=== PATIENT | female | born 1950 | race Caucasian/White ===

== ENCOUNTER 2025-05-11 15:37 | Inpatient (IN) ==
--- NOTE | 2025-05-11 16:02 | DR.GENAD ---
HPI Time Seen Time Seen by Provider: 05/11/25 15:52 Complaint/Symptoms Chief Complaint Doctors Comments: 75 yo F, hx of dementia (non-verbal), BIBA from home for infection to RUQ of abd wall. Pt has g-tube in place. states that she has formed multiple ulcerations around stoma, and then the redness spread from these ulcerations along RUQ abd wall the past wk with increasing severity. Denies fever. Denies other complaints. PMH PMH Past Medical History: Alzheimers, Anxiety, Diabetes, GERD and Hypothyroidism Past Surgical History: Yes Surgical History: Cholecystectomy Social History Do you use any recreational Drugs:: No ROS Review of Systems Unable to Obtain Due To: Dementia PE Vital Signs Vitals: Vital Signs Temperature 98.0 F Pulse Rate 78 Pulse Rate 76 Pulse Rate 78 Pulse Rate 76 Pulse Rate 77 Pulse Rate 80 Pulse Rate 79 Pulse Rate 78 Pulse Rate 81 Pulse Rate 83 Pulse Rate 91 Pulse Rate 81 Pulse Rate 85 Pulse Rate 78 Pulse Rate 77 Pulse Rate 83 Pulse Rate 77 Pulse Rate 86 Pulse Rate 80 Pulse Rate 85 Respiratory Rate 27 Respiratory Rate 23 Respiratory Rate 18 Respiratory Rate 26 Respiratory Rate 24 Respiratory Rate 31 Respiratory Rate 28 Respiratory Rate 24 Respiratory Rate 30 Respiratory Rate 25 Respiratory Rate 49 Respiratory Rate 32 Respiratory Rate 35 Respiratory Rate 19 Respiratory Rate 22 Respiratory Rate 20 Respiratory Rate 20 Respiratory Rate 35 Blood Pressure 132/60 Blood Pressure 130/58 Blood Pressure 159/122 Blood Pressure 186/78 Blood Pressure 165/68 Blood Pressure 184/78 Blood Pressure 184/78 Blood Pressure 142/86 O2 Sat by Pulse Oximetry 96 O2 Sat by Pulse Oximetry 97 O2 Sat by Pulse Oximetry 96 O2 Sat by Pulse Oximetry 93 O2 Sat by Pulse Oximetry 96 O2 Sat by Pulse Oximetry 98 O2 Sat by Pulse Oximetry 99 O2 Sat by Pulse Oximetry 98 O2 Sat by Pulse Oximetry 99 O2 Sat by Pulse Oximetry 100 O2 Sat by Pulse Oximetry 99 O2 Sat by Pulse Oximetry 98 O2 Sat by Pulse Oximetry 98 O2 Sat by Pulse Oximetry 98 O2 Sat by Pulse Oximetry 98 O2 Sat by Pulse Oximetry 98 General Limitations: No Limitations General Appearance: Alert and In No Apparent Distress Head Head Exam: Normal Inspection Eyes Eye exam: Normal Appearance ENT ENT Exam: Normal Exam External Ear Exam: Normal External Inspection TM/Canal Exam: Bilateral: Normal Nose Exam: Normal Nose Exam Mouth Exam: Normal Inspection Throat Exam: Normal Inspection Neck Neck Exam: Normal Inspection Chest Chest Inspection: Normal Inspection Respiratory Respiratory Exam: Normal Lung Sounds Bilat Respiratory Exam: Bilateral: Clear to Auscultation Cardiovascular Cardiovascular Exam: Regular Rate and Normal Rhythm Abdominal Exam Abdominal Exam: Other (G-tube in place, mult ulcerations surrounding stoma, erythematous patch along RUQ/R lower chest wall, warm to the touch, consistent with abd wall cellulitis.) Extremities Extremities Exam: Normal Inspection Back Back Exam: Normal Inspection Neurologic Neurological Exam: Alert Skin Skin Exam: Warm, Dry, Intact, Normal Color and Rash (see abdominal exam) ROR Labs Reviewed Laboratory Results Reviewed?: Yes 05/11/25 16:00 05/11/25 16:00 Laboratory: WBC 8.2 X10^3/uL (3.6-10.0) 05/11/25 16:00 RBC 4.81 X10^6/uL (3.5-5.4) 05/11/25 16:00 Hgb 13.9 g/dL (12.0-16.0) 05/11/25 16:00 Hct 42.1 % (36.0-47.0) 05/11/25 16:00 MCV 87.6 fL (80.0-100.0) 05/11/25 16:00 MCH 28.9 pg (27.0-34.0) 05/11/25 16:00 MCHC 33.0 g/dL (33.0-35.0) 05/11/25 16:00 RDW 14.3 % (11.6-16.5) 05/11/25 16:00 Plt Count 260 X10^3/uL (150.0-450.0) 05/11/25 16:00 MPV 10.0 fL (7.4-11.0) 05/11/25 16:00 Neut % (Auto) 55.6 % (42.0-75.0) 05/11/25 16:00 Lymph % (Auto) 25.4 % (21.0-51.0) 05/11/25 16:00 [place] % (Auto) 13.3 % (0.0-13.0) H 05/11/25 16:00 Eos % (Auto) 3.9 % (0.9-2.9) H 05/11/25 16:00 Baso % (Auto) 1.8 % (0.2-1.0) H 05/11/25 16:00 Neut # (Auto) 4.5 x10^3/uL (2.2-4.8) 05/11/25 16:00 Lymph # (Auto) 2.1 X10^3/uL (1.3-2.9) 05/11/25 16:00 [place] # (Auto) 1.1 x10^3/uL (0.3-0.8) H 05/11/25 16:00 Eos # (Auto) 0.3 x10^3/uL (0.0-0.2) H 05/11/25 16:00 Baso # (Auto) 0.1 X10^3/uL (0.0-0.1) 05/11/25 16:00 Absolute Nucleated RBC 0.1 /100WBC 05/11/25 16:00 Sodium 142 mmol/L (136-145) 05/11/25 16:00 Corrected Sodium TNP 05/11/25 16:00 Potassium 4.0 mmol/L (3.5-5.1) 05/11/25 16:00 Chloride 104 mmol/L (98-107) 05/11/25 16:00 Carbon Dioxide 31.7 mmol/L (21-32) 05/11/25 16:00 BUN 18 mg/dL (7-18) 05/11/25 16:00 Creatinine 0.75 mg/dL (0.55-1.02) 05/11/25 16:00 Est GFR (MDRD) Af Amer > 60 (>60) 05/11/25 16:00 Est GFR (MDRD) Non-Af > 60 (>60) 05/11/25 16:00 Glucose 91 mg/dL (65-99) 05/11/25 16:00 Lactic Acid 1.1 mmol/L (0.4-2.0) 05/11/25 16:00 Calcium 10.0 mg/dL (8.5-10.1) 05/11/25 16:00 Opioid Opioid Risk Tool Age (Jovanni box if 16-45): No History of Preadolescent Sexual Abuse: No Total: 0 Total Score Risk Category: Low Risk Copyright: Guilherme HART predicting aberrant behaviors Discharge Plan Diagnosis Discharge Problem: Abdominal wall cellulitis Discharge Plan Patient Disposition: 09 ADMITTED INPATIENT Condition: Stable Prescriptions: No Action simvastatin 40 mg Tablet 40 mg PO HS memantine [Namenda] 10 mg Tablet 10 mg PO BID fenofibrate nanocrystallized 48 mg tablet 48 mg PO HS alprazolam 0.5 mg tablet 0.5 tab PO DIRECTED Rx Instructions: take 1/2 tablet in the morning and 1 tablet at bedtime pantoprazole 40 mg tablet,delayed release (DR/EC) 40 mg PO QDAY quetiapine 25 mg tablet 25 mg PO QPM clindamycin HCl 300 mg capsule 300 mg PO TID Rx Instructions: x 14 days - started on 05/10/25 donepezil 10 mg tablet 10 mg PO DAILY levothyroxine [Synthroid] 75 mcg Tablet 75 mcg PO DAILY Health Concerns: Post Hospitalization: new medications and changes needed to prevent readmission or further decline. Pt educated and given instructions on all concerns. Plan of Treatment: Continue with present treatment and follow up plan. Pt is to keep follow up appointment as instructed and take medications as ordered. Orders to Discharge Patient Discharge Orders: Transfer (Routine); Ordered 05/11/25 Ordered By: Brendon Hayden Follow ups/Referrals Follow ups/Referrals: [facility],None [Primary Care Provider] - 3 days Instructions Stand Alone Forms: Find Help Web Site, Post Hospital Follow Up Care Print Language: SAMMARINESE
[2025-05-11] MEDS: VANCOMYCIN IV *PREMIX 1 G/200 ML BAG 1 G/200 ML PIGGYBACK IV SCH (16:17)
[2025-05-11 16:19] VITALS: BMI 19.8
[2025-05-11 16:32] LABS: MEAN PLATELET VOLUME 10.0 fL (7.4-11.0); RED CELL DISTRIBUTION WIDTH 14.3 % (11.6-16.5)
[2025-05-11 16:35] LABS: CREATININE 0.75 mg/dL (0.55-1.02); eGFR NON BLACK RACES > 60 (>60)
[2025-05-11] MEDS: BENADRYL INJ 50 MG VIAL IVP ONE (17:01)
[2025-05-11] MEDS ORDERED: ULTRAM PO PRN (20:25)
[2025-05-11] MEDS ORDERED: TYLENOL 325 MG TAB PO PRN (20:25)
[2025-05-11] MEDS ORDERED: ZOFRAN TAB 4 MG PO PRN (20:25)
[2025-05-11] MEDS ORDERED: NORCO 5/325 MG TAB PO PRN (20:25)
[2025-05-11] MEDS ORDERED: MORPHINE SULFATE INJ 2 MG INJ IVP PRN (20:25)
[2025-05-11] MEDS: CONSULT PHARMACY - POTASSIUM & MAGNESIUM XX SCH (20:34)
[2025-05-11] MEDS: NAMENDA TAB 10 MG PO SCH (21:43)
[2025-05-11] MEDS: ZOCOR TAB 40 MG PO SCH (21:44)
[2025-05-11] MEDS: TRICOR TAB 48 MG PO SCH (21:44)
[2025-05-11] MEDS: NS 1,000 ML IV 1,000 ML IV SCH (22:23)
[2025-05-11] MEDS: CLINDAMYCIN HCL 300 MG PO SCH (22:29)
[2025-05-12 05:07] LABS: MEAN PLATELET VOLUME 10.4 fL (7.4-11.0); RED CELL DISTRIBUTION WIDTH 14.1 % (11.6-16.5)
[2025-05-12] MEDS: CLEOCIN PO SCH (05:18)
[2025-05-12 05:47] LABS: CREATININE 0.64 mg/dL (0.55-1.02); eGFR NON BLACK RACES > 60 (>60)
[2025-05-12] MEDS: PROTONIX TAB 40 MG PO SCH (09:25)
[2025-05-12] MEDS: ARICEPT TAB 10 MG PO SCH (09:25)
[2025-05-12] MEDS: ALPRAZOLAM ODT PO SCH ×2 (09:25→21:11)
[2025-05-12] MEDS ORDERED: DIFLUCAN 100 MG IV (MIX by PHARMACY)* 100 MG/50 ML BAG IV SCH (14:00)
[2025-05-12] MEDS: DIFLUCAN 200 MG IV PREMIX* 200 MG/100 ML BAG IV SCH (14:28)
[2025-05-12] MEDS: PHARMACY CONSULT XX SCH (18:46)
--- NOTE | 2025-05-13 06:19 | DR.H&P ---
H&P History & Physical for Day of: H&P Date: 05/12/25 Chief Complaint Chief Complaint: skin infection History of Present Illness History of Present Illness: Patient is a 75-year-old female with a past medical history of dementia (nonverbal) presented to the ER by ambulance due to infection of her abdominal wall on the right side. 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 Her is with her and states that she is bed ridden and surrounding where the colostomy is placed the skin has some ulcerations. He also reports redness of skin on the right side of her abdomen. Denies fevers. Labs/imaging: WBC 5.9, hemoglobin 14.3, platelets 236, sodium 144, potassium 4.2, creatinine 0.64, glucose 99. Patient was admitted for cellulitis. She was started on IV fluids normal saline at 80 mL/h. She was started on IV vancomycin and p.o. clindamycin. Per patient was having some type of reaction to vancomycin when it was given. We will discontinue that at this time. Continue with clindamycin. Will consult general surgeryDr. Coronado who is aware of this patient. Follow-up recommendations. Otherwise continue with current treatment plan. Continue closely monitor and follow-up labs/imaging. Past Medical History Past Medical History: Alzheimers, Anxiety, Diabetes, GERD and Hypothyroidism Additional Medical History: PARKINSONS Past Surgical History Surgical History: Cholecystectomy Social History Does patient currently use any type of tobacco product: No Have you used tobacco products in the last 12 months: No Type of Tobacco Use: None Does any household member use tobacco: No Alcohol Use: None Drug Use: None Medications Home Medications: Home Medications Medication Instructions Recorded Confirmed Type alprazolam 0.5 mg tablet 0.5 tab PO DIRECTED 03/2405/11/25 History fenofibrate nanocrystallized 48 mg 48 mg PO HS 3 05/11/25 History tablet memantine 10 mg tablet (Namenda) 10 mg PO BID 03/24/23 05/11/25 History simvastatin 40 mg tablet 40 mg PO HS 03/24/23 5 History pantoprazole 40 mg tablet,delayed 40 mg PO QDAY 05/11/25 History release clindamycin HCl 300 mg capsule 300 mg PO TID 05/11/25 05/11/25 History donepezil 10 mg tablet 10 mg PO DAILY 05/11/25 08/2 History levothyroxine 75 mcg tablet 75 mcg PO DAILY 05/11/25 0 05/11/25 History (Synthroid) quetiapine 25 mg tablet 25 mg PO QPM 05/11/25 History Allergies Allergies Allergy/AdvReac Type Severity Reaction Status Date / Time No Known Drug Allergies Allergy Verified 08/05/23 11:05 Labs 05/12/25 04:35 05/12/25 04:35 Labs: Laboratory WBC 5.9 X10^3/uL (3.6-10.0) 05/12/25 04:35 RBC 4.86 X10^6/uL (3.5-5.4) 05/12/25 04:35 Hgb 14.2 g/dL (12.0-16.0) 05/12/25 04:35 Hct 42.4 % (36.0-47.0) 05/12/25 04:35 MCV 87.3 fL (80.0-100.0) 05/12/25 04:35 MCH 29.2 pg (27.0-34.0) 05/12/25 04:35 MCHC 33.4 g/dL (33.0-35.0) 05/12/25 04:35 RDW 14.1 % (11.6-16.5) 05/12/25 04:35 Plt Count 236 X10^3/uL (150.0-450.0) 05/12/25 04:35 MPV 10.4 fL (7.4-11.0) 05/12/25 04:35 Neut % (Auto) 41.7 % (42.0-75.0) L 05/12/25 04:35 Lymph % (Auto) 40.3 % (21.0-51.0) 05/12/25 04:35 [place] % (Auto) 12.9 % (0.0-13.0) 05/12/25 04:35 Eos % (Auto) 4.4 % (0.9-2.9) H 05/12/25 04:35 Baso % (Auto) 0.7 % (0.2-1.0) 05/12/25 04:35 Neut # (Auto) 2.5 x10^3/uL (2.2-4.8) 05/12/25 04:35 Lymph # (Auto) 2.4 X10^3/uL (1.3-2.9) 05/12/25 04:35 [place] # (Auto) 0.8 x10^3/uL (0.3-0.8) 05/12/25 04:35 Eos # (Auto) 0.3 x10^3/uL (0.0-0.2) H 05/12/25 04:35 Baso # (Auto) 0.0 X10^3/uL (0.0-0.1) 05/12/25 04:35 Absolute Nucleated RBC 0.3 /100WBC 05/12/25 04:35 Sodium 144 mmol/L (136-145) 05/12/25 04:35 Corrected Sodium TNP 05/12/25 04:35 Potassium 4.2 mmol/L (3.5-5.1) 05/12/25 04:35 Chloride 106 mmol/L (98-107) 05/12/25 04:35 Carbon Dioxide 27.8 mmol/L (21-32) 05/12/25 04:35 BUN 11 mg/dL (7-18) 05/12/25 04:35 Creatinine 0.64 mg/dL (0.55-1.02) 05/12/25 04:35 Est GFR (MDRD) Af Amer > 60 (>60) 05/12/25 04:35 Est GFR (MDRD) Non-Af > 60 (>60) 05/12/25 04:35 Glucose 99 mg/dL (65-99) 05/12/25 04:35 Lactic Acid 1.1 mmol/L (0.4-2.0) 05/11/25 16:00 Calcium 9.9 mg/dL (8.5-10.1) 05/12/25 04:35 Corrected Calcium TNP 05/12/25 04:35 Total Bilirubin 0.50 mg/dL (0.2-1.0) 05/12/25 04:35 AST 28 Units/L (15-37) 05/12/25 04:35 ALT 19 Units/L (12-78) 05/12/25 04:35 Alkaline Phosphatase 74 Units/L (46-116) 05/12/25 04:35 Total Protein 8.1 g/dL (6.4-8.2) 05/12/25 04:35 Albumin 4.0 g/dL (3.4-5.0) 05/12/25 04:35 Globulin 4.1 g/dL (2.5-4.5) 05/12/25 04:35 Albumin/Globulin Ratio 1.0 Ratio (1.1-2.1) L 05/12/25 04:35 Review of Systems Constitutional: Other (patient non-verbal and bedridden) Eyes: No Symptoms Reported ENT: No Symptoms Reported Respiratory: No Symptoms Reported Cardiovascular: No Symptoms Reported Gastrointestinal: No Symptoms Reported Genitourinary: No Symptoms Reported Musculoskeletal: No Symptoms Reported Skin: Rash and Wound (abdominal ulcer) Neurological: No Symptoms Reported Physical Exam Vital Signs: Vital Signs Temperature 98.0 F Pulse Rate [Brachial] 71 Respiratory Rate 19 Blood Pressure [Left Arm] 150/70 O2 Sat by Pulse Oximetry 94 Oriented: Unable to test Eyes: Normal Ear: Normal Nose: Normal Throat: Normal Respiratory: Clear Throughout Cardiovascular: Normal : Normal Auscultation: Bowel Sounds: Normal Palpation: Normal Tenderness: Normal Skin: Red (right abdominal wall, skin ulceration around colostomy) Musculoskeletal: Normal Psychiatric: Normal Mood Description: Calm and Appropriate Affect: Normal Speech Pattern: Clear and Appropriate Assessment/Plan (1) Abdominal wall cellulitis: Status: Acute Plan: Continue antibiotics Consult general surgery (2) Dementia: Status: Acute (3) Bedbound: Status: Acute Review H&P Reviewed: Yes Patient was examined?: Yes
[2025-05-13 06:34] LABS: CREATININE 0.69 mg/dL (0.55-1.02); eGFR NON BLACK RACES > 60 (>60)
[2025-05-13 07:48] LABS: MEAN PLATELET VOLUME 9.7 fL (7.4-11.0); RED CELL DISTRIBUTION WIDTH 14.4 % (11.6-16.5)
[2025-05-13] MEDS ORDERED: PHARMACY COMMENT IV ONE (08:30)
--- NOTE | 2025-05-13 18:20 | PCM.PROG ---
Progress Note Progress Note for Day of Date of Exam: 05/13/25 Subjective Subjective: Patient is a 75-year-old female with a past medical history of dementia (nonverbal), bedbound, admitted for cellulitis. 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 This morning she is in bed. No acute events overnight. Labs/imaging: WBC 5.3, hemoglobin 13.1, platelets 235, sodium 146, potassium 3.9, creatinine 0.69, glucose 80. Continue IV fluids normal saline at 80 mL/h and antibiotics clindamycin. General surgeryDr. Coronado consulted. He recommends continuing with antibiotics and monitoring. Ulcers difficult to heal due to contamination from stool. Possible consideration would be relocation of the stoma. Otherwise continue with current treatment plan. Continue closely monitor and follow-up labs/imaging. Past Medical Family Social History Allergies: Allergies No Known Drug Allergies Allergy (Verified 08/05/23 11:05) Review of Systems ROS changes noted: see HPI Vital Signs and I&O's Vital Signs: Vital Signs Temperature 98.4 F Temperature 98.1 F Pulse Rate [Brachial] 85 Pulse Rate [Brachial] 65 Respiratory Rate 17 Respiratory Rate 18 Blood Pressure [Left Arm] 140/80 Blood Pressure [Left Arm] 168/69 O2 Sat by Pulse Oximetry 99 O2 Sat by Pulse Oximetry 97 Intake and Output: Intake & Output 05/10/25 05/11/25 05/12/25 05/13/25 23:59 23:59 23:59 23:59 Intake Total 0 / 0 1613 / 1613 960 / 960 Balance 0 / 0 1613 / 1613 960 / 960 Physical Exam Oriented: Unable to test Eyes: Normal Ear: Normal Nose: Normal Throat: Normal Respiratory: Normal Cardiovascular: Normal : Normal Auscultation: Bowel Sounds: Normal Tenderness: Normal Skin: Red (right abdominal wall, skin ulceration around colostomy) Musculoskeletal: Normal Psychiatric: Normal Mood Description: Calm and Appropriate Affect: Normal Speech Pattern: Aphasic Laboratory and Diagnostics 05/13/25 07:37 05/13/25 05:58 Labs: 05/11/25 16:18 Blood Blood Culture - Preliminary 05/11/25 16:00 Blood Blood Culture Gram Stain - Final 05/11/25 16:00 Blood Blood Culture - Preliminary Laboratory WBC 5.3 X10^3/uL (3.6-10.0) 05/13/25 07:37 RBC 4.56 X10^6/uL (3.5-5.4) 05/13/25 07:37 Hgb 13.1 g/dL (12.0-16.0) 05/13/25 07:37 Hct 40.1 % (36.0-47.0) 05/13/25 07:37 MCV 87.8 fL (80.0-100.0) 05/13/25 07:37 MCH 28.8 pg (27.0-34.0) 05/13/25 07:37 MCHC 32.8 g/dL (33.0-35.0) L 05/13/25 07:37 RDW 14.4 % (11.6-16.5) 05/13/25 07:37 Plt Count 235 X10^3/uL (150.0-450.0) 05/13/25 07:37 MPV 9.7 fL (7.4-11.0) 05/13/25 07:37 Neut % (Auto) 41.1 % (42.0-75.0) L 05/13/25 07:37 Lymph % (Auto) 36.3 % (21.0-51.0) 05/13/25 07:37 [place] % (Auto) 15.5 % (0.0-13.0) H 05/13/25 07:37 Eos % (Auto) 5.9 % (0.9-2.9) H 05/13/25 07:37 Baso % (Auto) 1.2 % (0.2-1.0) H 05/13/25 07:37 Neut # (Auto) 2.2 x10^3/uL (2.2-4.8) 05/13/25 07:37 Lymph # (Auto) 1.9 X10^3/uL (1.3-2.9) 05/13/25 07:37 [place] # (Auto) 0.8 x10^3/uL (0.3-0.8) 05/13/25 07:37 Eos # (Auto) 0.3 x10^3/uL (0.0-0.2) H 05/13/25 07:37 Baso # (Auto) 0.1 X10^3/uL (0.0-0.1) 05/13/25 07:37 Absolute Nucleated RBC 0.1 /100WBC 05/13/25 07:37 Sodium 146 mmol/L (136-145) H 05/13/25 05:58 Corrected Sodium TNP 05/13/25 05:58 Potassium 3.9 mmol/L (3.5-5.1) 05/13/25 05:58 Chloride 109 mmol/L (98-107) H 05/13/25 05:58 Carbon Dioxide 26.7 mmol/L (21-32) 05/13/25 05:58 BUN 10 mg/dL (7-18) 05/13/25 05:58 Creatinine 0.69 mg/dL (0.55-1.02) 05/13/25 05:58 Est GFR (MDRD) Af Amer > 60 (>60) 05/13/25 05:58 Est GFR (MDRD) Non-Af > 60 (>60) 05/13/25 05:58 Glucose 80 mg/dL (65-99) 05/13/25 05:58 Lactic Acid 1.1 mmol/L (0.4-2.0) 05/11/25 16:00 Calcium 9.1 mg/dL (8.5-10.1) 05/13/25 05:58 Corrected Calcium TNP 05/13/25 05:58 Total Bilirubin 0.30 mg/dL (0.2-1.0) 05/13/25 05:58 AST 28 Units/L (15-37) 05/13/25 05:58 ALT 23 Units/L (12-78) 05/13/25 05:58 Alkaline Phosphatase 66 Units/L (46-116) 05/13/25 05:58 Total Protein 7.4 g/dL (6.4-8.2) 05/13/25 05:58 Albumin 3.8 g/dL (3.4-5.0) 05/13/25 05:58 Globulin 3.6 g/dL (2.5-4.5) 05/13/25 05:58 Albumin/Globulin Ratio 1.1 Ratio (1.1-2.1) 05/13/25 05:58 Plan (1) Abdominal wall cellulitis: Status: Acute Plan: Continue antibiotics Consult general surgery (2) Dementia: Status: Acute (3) Bedbound: Status: Acute
--- NOTE | 2025-05-14 09:46 | DR.PROGNOT ---
HOSPITAL PROGRESS NOTE Progress Note for Day of: Progress Note Date: 05/14/25 Chief Complaint Chief Complaint: no changes in Pt's condition . has cellulitis on abdominal wall from ulcers around the stoma which are getting contaminated from stool . the rest of her Hx is the same . 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 has multiple ulcers around the stoma which are protected using dressing and stoma paste . Past Medical Family Social History Allergies: Allergies No Known Drug Allergies Allergy (Verified 08/05/23 11:05) Review Of Systems Changes in ROS: see HPI Vital Signs Vital Signs: Vital Signs Temperature 98.2 F Pulse Rate [Brachial] 72 Respiratory Rate 19 Blood Pressure [Left Arm] 103/62 O2 Sat by Pulse Oximetry 98 Physical Exam Oriented: Unable to test Eyes: Normal Ear: Normal Nose: Normal Throat: Normal Respiratory: Normal Cardiovascular: Normal : Normal GI:Auscultation: Normal GI:Palpation: Normal GI: Tenderness: Normal Skin: Red (cellulitis right abdominal wall, skin ulceration around colostomy) Musculoskeletal: Normal Psychiatric: Normal Mood Description: Calm and Appropriate Affect: Normal Speech Pattern: Aphasic Laboratory and Diagnostics 05/13/25 07:37 05/13/25 05:58 Labs: 05/11/25 16:18 Blood Blood Culture - Preliminary 05/11/25 16:00 Blood Blood Culture Gram Stain - Final 05/11/25 16:00 Blood Blood Culture - Preliminary Laboratory WBC 5.3 X10^3/uL (3.6-10.0) 05/13/25 07:37 RBC 4.56 X10^6/uL (3.5-5.4) 05/13/25 07:37 Hgb 13.1 g/dL (12.0-16.0) 05/13/25 07:37 Hct 40.1 % (36.0-47.0) 05/13/25 07:37 MCV 87.8 fL (80.0-100.0) 05/13/25 07:37 MCH 28.8 pg (27.0-34.0) 05/13/25 07:37 MCHC 32.8 g/dL (33.0-35.0) L 05/13/25 07:37 RDW 14.4 % (11.6-16.5) 05/13/25 07:37 Plt Count 235 X10^3/uL (150.0-450.0) 05/13/25 07:37 MPV 9.7 fL (7.4-11.0) 05/13/25 07:37 Neut % (Auto) 41.1 % (42.0-75.0) L 05/13/25 07:37 Lymph % (Auto) 36.3 % (21.0-51.0) 05/13/25 07:37 [place] % (Auto) 15.5 % (0.0-13.0) H 05/13/25 07:37 Eos % (Auto) 5.9 % (0.9-2.9) H 05/13/25 07:37 Baso % (Auto) 1.2 % (0.2-1.0) H 05/13/25 07:37 Neut # (Auto) 2.2 x10^3/uL (2.2-4.8) 05/13/25 07:37 Lymph # (Auto) 1.9 X10^3/uL (1.3-2.9) 05/13/25 07:37 [place] # (Auto) 0.8 x10^3/uL (0.3-0.8) 05/13/25 07:37 Eos # (Auto) 0.3 x10^3/uL (0.0-0.2) H 05/13/25 07:37 Baso # (Auto) 0.1 X10^3/uL (0.0-0.1) 05/13/25 07:37 Absolute Nucleated RBC 0.1 /100WBC 05/13/25 07:37 Sodium 146 mmol/L (136-145) H 05/13/25 05:58 Corrected Sodium TNP 05/13/25 05:58 Potassium 3.9 mmol/L (3.5-5.1) 05/13/25 05:58 Chloride 109 mmol/L (98-107) H 05/13/25 05:58 Carbon Dioxide 26.7 mmol/L (21-32) 05/13/25 05:58 BUN 10 mg/dL (7-18) 05/13/25 05:58 Creatinine 0.69 mg/dL (0.55-1.02) 05/13/25 05:58 Est GFR (MDRD) Af Amer > 60 (>60) 05/13/25 05:58 Est GFR (MDRD) Non-Af > 60 (>60) 05/13/25 05:58 Glucose 80 mg/dL (65-99) 05/13/25 05:58 Lactic Acid 1.1 mmol/L (0.4-2.0) 05/11/25 16:00 Calcium 9.1 mg/dL (8.5-10.1) 05/13/25 05:58 Corrected Calcium TNP 05/13/25 05:58 Total Bilirubin 0.30 mg/dL (0.2-1.0) 05/13/25 05:58 AST 28 Units/L (15-37) 05/13/25 05:58 ALT 23 Units/L (12-78) 05/13/25 05:58 Alkaline Phosphatase 66 Units/L (46-116) 05/13/25 05:58 Total Protein 7.4 g/dL (6.4-8.2) 05/13/25 05:58 Albumin 3.8 g/dL (3.4-5.0) 05/13/25 05:58 Globulin 3.6 g/dL (2.5-4.5) 05/13/25 05:58 Albumin/Globulin Ratio 1.1 Ratio (1.1-2.1) 05/13/25 05:58 Assessment and Plan 1: cellulitis abdominal wall . skin ulcers around the stoma . on IV ABT and Diflucan , local care .. 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 3: recto vaginal fistula , S/P diverting colostomy .. Problem Patient Problems: Patient Problems Abdominal wall cellulitis (Acute) L03.311
[2025-05-15 05:56] LABS: MEAN PLATELET VOLUME 10.2 fL (7.4-11.0); RED CELL DISTRIBUTION WIDTH 14.2 % (11.6-16.5)
[2025-05-15 06:13] LABS: COR CA(FOR HYPOALB) 9.5 mg/dL (8.5-10.1); CREATININE 0.72 mg/dL (0.55-1.02); eGFR NON BLACK RACES > 60 (>60)
[2025-05-15] MEDS ORDERED: CONSULT PHARMACY - POTASSIUM & MAGNESIUM XX SCH (07:00)
[2025-05-15] MEDS: MAG-OX TAB PO SCH (09:10)
[2025-05-15] MEDS: K-DUR TAB 20 MEQ PO SCH (09:10)
[2025-05-15] MEDS: CLEOCIN 600 MG IV PREMIX 600 MG/50 ML BAG IV SCH (09:10)
[2025-05-15] MEDS: MAGNESIUM SULFATE 1 GRAM/100 mL PREMIX 1 G/100 ML BAG IV SCH (11:29)
[2025-05-15] MEDS: ZOFRAN INJ 4 MG VIAL IVP PRN (14:59)
[2025-05-16 05:51] LABS: MEAN PLATELET VOLUME 9.7 fL (7.4-11.0); RED CELL DISTRIBUTION WIDTH 14.3 % (11.6-16.5)
[2025-05-16 06:07] LABS: CREATININE 0.62 mg/dL (0.55-1.02); eGFR NON BLACK RACES > 60 (>60)
[2025-05-16] MEDS ORDERED: CONSULT PHARMACY - POTASSIUM & MAGNESIUM XX SCH (07:00)
[2025-05-16] MEDS ORDERED: K-DUR TAB 20 MEQ PO SCH (09:00)
--- NOTE | 2025-05-16 10:45 | PCM.PROG ---
Progress Note Progress Note for Day of Date of Exam: 05/16/25 Subjective Subjective: Patient seen at bedside, no acute events overnight. She did have some N/V yesterday. She is admitted for abdominal wall cellulitis/ulcers. 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 Wound images reviewed. The wound appears to be slightly better compared to admission. She remains on IV antibiotics. Dr Rhodes is following along. Labs/imaging reviewed: -WBC 5.6 Hgb 13 K 3.6 Cr 0.62 -Blood Cx x 1: CONS Plan: follow surgery recommendations for wound care and dressing change. Continue IV antibiotics. Zofran prn. Follow final cultures. Replace electrolytes as per protocol. Continue home medications as tolerated. Monitor AM labs/imaging. Past Medical Family Social History Allergies: Allergies No Known Drug Allergies Allergy (Verified 08/05/23 11:05) Vital Signs and I&O's Vital Signs: Vital Signs Temperature 97.6 F Temperature 97.7 F Pulse Rate [Brachial] 65 Pulse Rate [Brachial] 70 Respiratory Rate 18 Respiratory Rate 18 Blood Pressure [Left Arm] 135/64 Blood Pressure [Left Arm] 149/60 O2 Sat by Pulse Oximetry 96 O2 Sat by Pulse Oximetry 99 Intake and Output: Intake & Output 05/13/25 05/14/25 05/15/25 05/16/25 23:59 23:59 23:59 23:59 Intake Total 1170 / 1170 175 / 175 1439 / 1439 587 / 587 Balance 1170 / 1170 175 / 175 1439 / 1439 587 / 587 Physical Exam Oriented: Unable to test Eyes: Normal Ear: Normal Nose: Normal Throat: Normal Respiratory: Normal Cardiovascular: Normal Auscultation: Bowel Sounds: Normal Tenderness: Normal Skin: Red (cellulitis right abdominal wall, skin ulceration around colostomy) Musculoskeletal: Normal Psychiatric: Normal Mood Description: Calm and Appropriate Affect: Normal Speech Pattern: Aphasic Laboratory and Diagnostics 05/16/25 05:32 05/16/25 05:32 Labs: 05/11/25 16:00 Blood Blood Culture Gram Stain - Final 05/11/25 16:00 Blood Blood Culture - Final 05/11/25 16:18 Blood Blood Culture - Preliminary Laboratory WBC 5.6 X10^3/uL (3.6-10.0) 05/16/25 05:32 RBC 4.48 X10^6/uL (3.5-5.4) 05/16/25 05:32 Hgb 13.0 g/dL (12.0-16.0) 05/16/25 05:32 Hct 38.7 % (36.0-47.0) 05/16/25 05:32 MCV 86.4 fL (80.0-100.0) 05/16/25 05:32 MCH 29.1 pg (27.0-34.0) 05/16/25 05:32 MCHC 33.7 g/dL (33.0-35.0) 05/16/25 05:32 RDW 14.3 % (11.6-16.5) 05/16/25 05:32 Plt Count 234 X10^3/uL (150.0-450.0) 05/16/25 05:32 MPV 9.7 fL (7.4-11.0) 05/16/25 05:32 Neut % (Auto) 51.8 % (42.0-75.0) 05/16/25 05:32 Lymph % (Auto) 28.9 % (21.0-51.0) 05/16/25 05:32 [place] % (Auto) 14.4 % (0.0-13.0) H 05/16/25 05:32 Eos % (Auto) 3.9 % (0.9-2.9) H 05/16/25 05:32 Baso % (Auto) 1.0 % (0.2-1.0) 05/16/25 05:32 Neut # (Auto) 2.9 x10^3/uL (2.2-4.8) 05/16/25 05:32 Lymph # (Auto) 1.6 X10^3/uL (1.3-2.9) 05/16/25 05:32 [place] # (Auto) 0.8 x10^3/uL (0.3-0.8) 05/16/25 05:32 Eos # (Auto) 0.2 x10^3/uL (0.0-0.2) 05/16/25 05:32 Baso # (Auto) 0.1 X10^3/uL (0.0-0.1) 05/16/25 05:32 Absolute Nucleated RBC 0.3 /100WBC 05/16/25 05:32 Sodium 146 mmol/L (136-145) H 05/16/25 05:32 Corrected Sodium TNP 05/16/25 05:32 Potassium 3.6 mmol/L (3.5-5.1) 05/16/25 05:32 Chloride 110 mmol/L (98-107) H 05/16/25 05:32 Carbon Dioxide 30.0 mmol/L (21-32) 05/16/25 05:32 BUN 9 mg/dL (7-18) 05/16/25 05:32 Creatinine 0.62 mg/dL (0.55-1.02) 05/16/25 05:32 Est GFR (MDRD) Af Amer > 60 (>60) 05/16/25 05:32 Est GFR (MDRD) Non-Af > 60 (>60) 05/16/25 05:32 Glucose 83 mg/dL (65-99) 05/16/25 05:32 Lactic Acid 1.1 mmol/L (0.4-2.0) 05/11/25 16:00 Calcium 8.6 mg/dL (8.5-10.1) 05/16/25 05:32 Corrected Calcium TNP 05/16/25 05:32 Magnesium 2.2 mg/dL (2.0-2.9) 05/16/25 05:32 Total Bilirubin 0.30 mg/dL (0.2-1.0) 05/16/25 05:32 AST 24 Units/L (15-37) 05/16/25 05:32 ALT 23 Units/L (12-78) 05/16/25 05:32 Alkaline Phosphatase 56 Units/L (46-116) 05/16/25 05:32 Total Protein 7.0 g/dL (6.4-8.2) 05/16/25 05:32 Albumin 3.5 g/dL (3.4-5.0) 05/16/25 05:32 Globulin 3.5 g/dL (2.5-4.5) 05/16/25 05:32 Albumin/Globulin Ratio 1.0 Ratio (1.1-2.1) L 05/16/25 05:32 Plan (1) Abdominal wall cellulitis: Status: Acute (2) Dementia: Status: Chronic Qualifiers: Dementia behavioral or psychological symptom: unspecified whether behavioral, psychotic, or mood disturbance or anxiety Dementia severity: u nspecified severity Dementia type: unspecified type Qualified Code(s): F03.90 - Unspecified dementia, unspecified severity, without behavioral disturbance, psychotic disturbance, mood disturbance, and anxiety (3) Bedbound: Status: Chronic (4) Anemia: Status: Chronic Qualifiers: Anemia type: unspecified type Qualified Code(s): D64.9 - Anemia, unspecified (5) Protein calorie malnutrition: Status: Chronic Qualifiers: Protein-calorie malnutrition severity: mild Qualified Code(s): E44.1 - Mild protein-calorie malnutrition (6) Colostomy care: Status: Chronic (7) Colovaginal fistula: Status: Chronic
[2025-05-16] MEDS: K-RIDER 10 MEQ/100 ML WATER 10 MEQ/100 ML BAG IV SCH (12:00)
[2025-05-17 05:53] LABS: MEAN PLATELET VOLUME 10.1 fL (7.4-11.0); RED CELL DISTRIBUTION WIDTH 14.2 % (11.6-16.5)
[2025-05-17 06:11] LABS: COR CA(FOR HYPOALB) 9.3 mg/dL (8.5-10.1); CREATININE 0.70 mg/dL (0.55-1.02); eGFR NON BLACK RACES > 60 (>60)
[2025-05-17] MEDS ORDERED: CONSULT PHARMACY - POTASSIUM & MAGNESIUM XX SCH (07:00)
[2025-05-17 08:21] VITALS: BP 130/59; PULSE 69; RESP 16; TEMP 97.7; O2SAT 98
[2025-05-17] MEDS: NS 1,000 ML IV 1,000 ML with MAGNESIUM SULFATE 50% INJ VIAL 1 G IV SCH (08:26)
[2025-05-17] MEDS: K-DUR TAB 20 MEQ PO ONE (08:27)
[2025-05-17] MEDS ORDERED: MAG-OX TAB PO SCH (09:00)
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
== END 2025-05-17 11:50 | disposition hospice, home (50) | DRG 394 ==
LOC: ER 15:37 → MED/SURG 15:37 → OBSVTOIN 19:29 → MED/SURG 20:11
PROVIDERS: ADMIT Family Medicine; ATTEND Family Medicine